=== PATIENT | female | born 1970 | race Caucasian/White ===

== ENCOUNTER 2017-03-31 17:30 | Inpatient (IN) | payer BC, MEDICAID ==
[~2017-03-31] VITALS: Ht 165.1 cm; Wt 86.2 kg
[~2017-03-31 17:30] MED LIST: BUPR-96 PO; ERGO500047 PO
--- NOTE | 2017-03-31 18:03 | NUR ---
PT IS AMBULATORY WITH STEADY GAIT. SPEAKING IN FULL SENTENCES. ACCOMPANIED BY SPOUSE AT BEDSIDE. C/O APARICIO SINCE LAST NIGHT. PAIN IS DESCRIBED PRESSURE LIKE PAIN, +PHOTO/+PHONO SENSITIVITY. +NAUSEA +VOMITING X 5 TIMES TODAY. PMHX MIGRAINE. HOWEVER PT VERBALIZED THAT "IT'S DIFFERENT THIS TIME." CAME TO SEE MD LOWERY TODAY WHO IS PT PCP AND WAS TOLD TO COME TO ED. PER PT, PT HAD AN MRI NOT SO LONG AGO AND FOUND "CYSTS" IN THE BACK OF THE NECK. WCTM PT AT THIS TIME. WAITING FOR MD TO PERFORM MSE.
--- NOTE | 2017-03-31 19:03 | NUR ---
ED HAND OFF TO MARIANELA OLIVIA
[2017-03-31] MEDS ORDERED: diphenhydrAMINE 50 MG/1 ML VIAL IV ONE (19:30)
[2017-03-31] MEDS ORDERED: IV NORMAL SALINE 1000 ML BAG IV ONE (19:30)
[2017-03-31] MEDS ORDERED: METOCLOPRAMIDE HCL 10 MG/2 ML VIAL IV ONE (19:30)
[2017-03-31 19:56] LABS: BASOPHILS # (AUTO) 0.1 K/uL (0.0-8.0); BASOPHILS % (AUTO) 0.8 % (0.0-2.0); EOSINOPHILS # (AUTO) 0.2 K/uL (0.0-0.7); EOSINOPHILS % (AUTO) 2.4 % (0.0-7.0); HEMOGLOBIN 14.6 G/DL (12.0-16.0); LYMPHOCYTES % (AUTO) 31.7 % (20.5-51.5); MEAN CORPUSCULAR HEMOGLOBIN 28.5 UUG (27.0-31.0); MEAN CORPUSCULAR HGB CONC 34 g/dL (32.0-37.0); MEAN CORPUSCULAR VOLUME 83.8 FL (81.0-99.0); MONOCYTES # (AUTO) 0.8 K/UL (0.1-1.30); MONOCYTES % (AUTO) 8.9 % (0.0-11.0); NEUTROPHILS # (AUTO) 5.2 K/UL (1.8-8.9); NEUTROPHILS % (AUTO) 56.2 % (38.5-71.5); PLATELET COUNT (AUTO) 224 K/UL (150-450); RED BLOOD CELL COUNT(AUTO) 5.14 MIL/UL (4.2-5.4); RED CELL DISTRIBUTION WIDTH 13.8 % (11.5-14.5); WHITE BLOOD COUNT (AUTO) 9.3 K/UL (4.0-11.2)
[2017-03-31 19:58] LABS: CALCIUM 8.6 mg/dL (8.5-10.1); CREATININE 0.7 mg/dL (0.6-1.3); POTASSIUM 3.6 mmol/L (3.5-5.1)
[2017-03-31] MEDS ORDERED: METOCLOPRAMIDE HCL 10 MG/2 ML VIAL ONE (20:12)
[2017-03-31] MEDS ORDERED: diphenhydrAMINE 50 MG/1 ML VIAL ONE (20:12)
[2017-03-31] MEDS ORDERED: ONDANSETRON 4 MG/2 ML VIAL IV ONE (22:15)
[2017-03-31] MEDS ORDERED: MORPHINE SULFATE 2 MG/1 ML DISP.SYRIN IV ONE (22:15)
[2017-03-31] MEDS ORDERED: ONDANSETRON 4 MG/2 ML VIAL ONE (22:25)
[2017-03-31] MEDS ORDERED: MORPHINE SULFATE 2 MG/1 ML DISP.SYRIN ONE (22:25)
[2017-03-31] MEDS ORDERED: MORPHINE SULFATE 2 MG/1 ML DISP.SYRIN IV PRN (22:45)
[2017-03-31] MEDS ORDERED: ACETAMINOPHEN 325 MG TABLET PO PRN (22:45)
[2017-03-31] MEDS ORDERED: ONDANSETRON 4 MG/2 ML VIAL IV PRN (22:45)
[2017-03-31] MEDS ORDERED: ERGOCALCIFEROL 50,000 UNIT CAPSULE PO SCH (22:45)
[2017-03-31] MEDS ORDERED: MAGNESIUM HYDROXIDE 30 ML LIQUID UDC PO PRN (22:45)
[2017-03-31] MEDS ORDERED: HYDROCODONE/APAP 5-325MG TABLET PO PRN (22:45)
--- NOTE | 2017-03-31 23:45 | NUR ---
Pt. admitted to TELE, under care of Dr. Powell Belongs List completed
[2017-04-01] VITALS (10 sets, daily range): BP systolic 102–125; BP diastolic 58–74
--- NOTE | 2017-04-01 | NUR ---
ADMITTED THIS 46Y.O. LADY,MONTENEGRIN SPEAKING BUT CAN UNDERSTAND AND SPEAK BURMESE WELL.. CHIEF COMPLAINTS OF HEADACHE,HAS HAD HISTORY OF MIGRAINES, ACCOMPANIED BY AND ER NURSE, VIA CARMEN, IN APPARENTLY FAIR CONDITION. NO C/O HEADACHE AT THIS TIME, VITAL SIGNS TAKEN AND RECORDED.NO SCUTE DISTRESS NOTED. ADMISSIONCARE RENDERED, MADE AWARE OF ADMISSION AND GAVE ORDERS TO CARRY OUT. IV SITE ON LEFT FOREARM INTACT.,KEPT WARM AND COMFORTABLE. ON TELE MONITOR,SINUS RHYTHM.HAD LUMBAR PUNCTURE IN ER BUT UNSUCCESSFUL.
--- NOTE | 2017-04-01 02:00 | NUR ---
MONITORED FOR ANY PAIN OR DISCOMFORT, SLEPT AT LONG INTERVALS.
--- NOTE | 2017-04-01 04:00 | NUR ---
VITALS TAKEN AND RECORDED, SLEPT ON AND OFF, STILL SINUS ON TELE, NO C/O HEADACHE OR ANY DISCOMFORTS.SKIN WARM AND DRY. CALL LITE W/I REACH.
--- NOTE | 2017-04-01 05:54 | NUR ---
LAB DRAWS FOR BLOODWORKS DONE AND TOLERATED WELL BY PT.,
[2017-04-01 06:43] LABS: ALBUMIN 3.1 g/dL (3.4-5.0); BILIRUBIN,TOTAL 0.6 mg/dL (0.2-1.0); CALCIUM 8.3 mg/dL (8.5-10.1); CREATININE 0.7 mg/dL (0.6-1.3); MAGNESIUM 2.2 mg/dL (1.8-2.4); TOTAL PROTEIN, SERUM 6.2 g/dL (6.4-8.2)
[2017-04-01 06:55] LABS: BASOPHILS % (AUTO) 0.7 % (0.0-2.0); EOSINOPHILS # (AUTO) 0.2 K/uL (0.0-0.7); EOSINOPHILS % (AUTO) 3.5 % (0.0-7.0); HEMATOCRIT 40.2 % (37-47); HEMOGLOBIN 13.5 G/DL (12.0-16.0); LYMPHOCYTES # (AUTO) 2.5 K/UL (0.8-4.8); LYMPHOCYTES % (AUTO) 36.5 % (20.5-51.5); MEAN CORPUSCULAR HEMOGLOBIN 28.5 UUG (27.0-31.0); MEAN CORPUSCULAR HGB CONC 34 g/dL (32.0-37.0); MEAN CORPUSCULAR VOLUME 84.6 FL (81.0-99.0); MONOCYTES # (AUTO) 0.6 K/UL (0.1-1.30); MONOCYTES % (AUTO) 9.4 % (0.0-11.0); NEUTROPHILS # (AUTO) 3.6 K/UL (1.8-8.9); NEUTROPHILS % (AUTO) 49.9 % (38.5-71.5); PLATELET COUNT (AUTO) 194 K/UL (150-450); RED BLOOD CELL COUNT(AUTO) 4.74 MIL/UL (4.2-5.4); RED CELL DISTRIBUTION WIDTH 13.6 % (11.5-14.5)
[2017-04-01] MEDS ORDERED: PANTOPRAZOLE SODIUM 40 MG TABLET.DR PO SCH (07:00)
[2017-04-01 07:08] LABS: WHITE BLOOD COUNT (AUTO) 6.9 K/UL (4.0-11.2)
[2017-04-01 07:10] LABS: THYROID STIMULATING HORMONE 3.135 mIU/mL (0.358-3.740)
--- NOTE | 2017-04-01 08:00 | NUR ---
awake alert and oriented, denies of nausea, no blurry vision, no double vision, states headache is lesser and tolerable, states doesn't require pain med, explained plan of care- verbalized understanding, safety measures maintained, call light within reach
[2017-04-01] MEDS ORDERED: buPROPion XL 150 MG TAB.SR.24H PO SCH (09:00)
--- NOTE | 2017-04-01 09:00 | NUR ---
here visiting, tele SR 70', states she's okay and comfortable, good food and fluid intake
--- NOTE | 2017-04-01 11:50 | NUR ---
having lumbar puncture in Xray dept- and in agreement- consent signed, at bedside, held lunch at this time
--- NOTE | 2017-04-01 12:10 | NUR ---
to [facility] dept per w/c
--- NOTE | 2017-04-01 13:30 | NUR ---
back from Xray dept- lumbar puncture site with dressing dry and intact, will be in supine position for 3-4 hrs and pt instructed- verbalized understanding, at bedside, lunch given
--- NOTE | 2017-04-01 13:45 | NUR ---
VSS- able to move legs well, wiggle toes freely, earm to touch, continues to be on supine position
[2017-04-01 13:57] LABS: CSF GLUCOSE 69 mg/dL (40-70); CSF PROTEIN 25 mg/dL (15-45)
--- NOTE | 2017-04-01 14:15 | NUR ---
vss, no bleeding on LP site, fgood circultion noted on both legs, able to move them well, denies of pain, no headache, at bedside
[2017-04-01 14:34] LABS: CSF APPEARANCE CLEAR (CLEAR); CSF COLOR COLORLESS (COLORLESS); CSF WHITE BLOOD CELL COUNT 1 /cumm (0-5)
[2017-04-01 14:37] LABS: CSF TUBE NUMBER 1
--- NOTE | 2017-04-01 15:30 | NUR ---
no distress noted, vss, denies of pain, good circulation noted on both lower extremities
[2017-04-01] MEDS ORDERED: CHOL10002 PO (16:09)
[2017-04-01] MEDS ORDERED: CHOLECALCIFEROL 1,000 UNIT TABLET PO SCH (16:15)
--- NOTE | 2017-04-01 17:15 | NUR ---
pt can now be up and feels fine, denies of dizziness and no headache,dinner served and te fairly
--- NOTE | 2017-04-01 17:40 | NUR ---
Pt going home per dr Powell- informed and in agreement
[2017-04-01] MEDS ORDERED: Acetaminophen PO (17:41)
[2017-04-01] MEDS ORDERED: SIMV10TA2 PO (17:41)
--- NOTE | 2017-04-01 19:00 | NUR ---
saline lock removed,no swelling/redness on site, discharge and medication instructions given- verbalized understanding, here to bring her home
--- NOTE | 2017-04-01 19:05 | NUR ---
escorted to car per w/c in stable condition under 's care, belongings width her
== END 2017-04-01 19:05 | disposition home or self-care (01) | DRG 103 ==
LOC: ER 17:34 → TELE 22:50
PROVIDERS: ADMIT Internal Medicine; ATTEND Internal Medicine
PROC: B01BYZZ Fluoroscopy of Spinal Cord using Other Contrast (ICD-10-PCS; principal; 2017-04-01)
PROC: 009U3ZX Drainage of Spinal Canal, Percutaneous Approach, Diagnostic (ICD-10-PCS; principal; 2017-04-01)
DX: G44.209 Tension-type headache, unspecified, not intractable (principal); E78.5 Hyperlipidemia, unspecified; E66.9 Obesity, unspecified; Z68.31 Body mass index [BMI] 31.0-31.9, adult
CPT/HCPCS: 36415; 62270; 70450; 83550; 83735; 84100; 84157; 84443; 85025; 85610; 85730; 87205; 89051; A4663; J1200; J2270; J2405; J2765; J7030

== ENCOUNTER 2017-04-04 13:26 | Inpatient (IN) | payer BC, MEDICAID ==
[~2017-04-04] VITALS: Ht 165.1 cm; Wt 90.3 kg
[~2017-04-04 13:26] MED LIST changes: +Acetaminophen PO; +CHOL10002 PO; -ERGO500047 PO; +SIMV10TA2 PO
[2017-04-04] MEDS ORDERED: METOCLOPRAMIDE HCL 10 MG/2 ML VIAL IV ONE (14:45)
[2017-04-04] MEDS ORDERED: IV NORMAL SALINE 1000 ML BAG IV ONE (14:45)
[2017-04-04] MEDS ORDERED: METOCLOPRAMIDE HCL 10 MG/2 ML VIAL ONE (15:05)
[2017-04-04] MEDS ORDERED: IV NORMAL SALINE 250 ML IV ONE (15:09)
[2017-04-04] MEDS ORDERED: IOHEXOL 350 100 ML INFUS..BTL ONE (15:09)
[2017-04-04 15:11] LABS: BASOPHILS % (AUTO) 0.1 % (0.0-2.0); EOSINOPHILS # (AUTO) 0.1 K/uL (0.0-0.7); EOSINOPHILS % (AUTO) 0.5 % (0.0-7.0); HEMATOCRIT 44.6 % (37-47); HEMOGLOBIN 15.1 G/DL (12.0-16.0); LYMPHOCYTES # (AUTO) 1.4 K/UL (0.8-4.8); LYMPHOCYTES % (AUTO) 11.6 % (20.5-51.5); MEAN CORPUSCULAR HEMOGLOBIN 28.5 UUG (27.0-31.0); MEAN CORPUSCULAR HGB CONC 34 g/dL (32.0-37.0); MEAN CORPUSCULAR VOLUME 83.9 FL (81.0-99.0); MONOCYTES # (AUTO) 0.4 K/UL (0.1-1.30); MONOCYTES % (AUTO) 3.4 % (0.0-11.0); NEUTROPHILS # (AUTO) 10.6 K/UL (1.8-8.9); NEUTROPHILS % (AUTO) 84.4 % (38.5-71.5); PLATELET COUNT (AUTO) 222 K/UL (150-450); RED BLOOD CELL COUNT(AUTO) 5.31 MIL/UL (4.2-5.4); RED CELL DISTRIBUTION WIDTH 13.5 % (11.5-14.5); WHITE BLOOD COUNT (AUTO) 12.5 K/UL (4.0-11.2)
[2017-04-04 15:15] LABS: CREATININE 0.8 mg/dL (0.6-1.3); POTASSIUM 4.4 mmol/L (3.5-5.1)
[2017-04-04] MEDS ORDERED: ONDANSETRON IV *ER 4 MG/2 ML VIAL IV ONE (15:45)
[2017-04-04] MEDS ORDERED: HYDROMORPHONE 1 MG/1 ML DISP.SYRIN IV ONE (15:45)
[2017-04-04] MEDS ORDERED: HYDROMORPHONE 1 MG/1 ML DISP.SYRIN ONE (15:57)
[2017-04-04] MEDS ORDERED: ONDANSETRON 4 MG/2 ML VIAL ONE (15:57)
[2017-04-04] MEDS ORDERED: DEXAMETHASONE SOD PHOSPHATE 4 MG INJ IV ONE (16:15)
[2017-04-04] MEDS ORDERED: DEXAMETHASONE SOD PHOSPHATE 10 MG INJ ONE (16:29)
[2017-04-04] MEDS ORDERED: MORPHINE SULFATE 2 MG/1 ML DISP.SYRIN IV ONE (18:45)
[2017-04-04] MEDS ORDERED: KETOROLAC TROMETHAMINE 15 MG INJ IVP ONE (18:45)
--- NOTE | 2017-04-04 18:55 | NUR ---
pt transfered to floor in stable condition
[2017-04-04] MEDS ORDERED: MORPHINE SULFATE 2 MG/1 ML DISP.SYRIN ONE (18:59)
[2017-04-04] MEDS ORDERED: MORPHINE SULFATE 4 MG/1 ML DISP.SYRIN ONE (18:59)
[2017-04-04] MEDS ORDERED: KETOROLAC TROMETHAMINE 15 MG INJ ONE (19:00)
--- NOTE | 2017-04-04 19:00 | NUR ---
Received report from ANGELIA nurse.
[2017-04-04] MEDS ORDERED: ACETAMINOPHEN 325 MG TABLET PO PRN (19:15)
[2017-04-04] MEDS ORDERED: ONDANSETRON 4 MG/2 ML VIAL IV PRN (19:15)
[2017-04-04] MEDS ORDERED: ZOLPIDEM 5 MG TABLET PO PRN (19:15)
[2017-04-04] MEDS ORDERED: Z GUARD REMEDY PASTE 57 GM TUBE TOP PRN (19:15)
[2017-04-04] MEDS ORDERED: MAGNESIUM HYDROXIDE 30 ML LIQUID UDC PO PRN (19:15)
--- NOTE | 2017-04-04 19:40 | NUR ---
Admitted a 46 year old female patient who presented c/o headache and nausea and vomiting. AAOx4, able to make needs known. Denies Headache and N/V at this time. Routine admission care done. Placed on a cardiac monitoring status as ordered. Plan of care initiated.
[2017-04-04 20:00] VITALS: BP 120/65
[2017-04-04] MEDS: SIMVASTATIN 10 MG TABLET PO SCH (22:04)
--- NOTE | 2017-04-05 | NUR ---
Sleeping comfortably on rounds. No s/s of pain/discomforts at this time. Continue to monitor.
--- NOTE | 2017-04-05 05:08 | NUR ---
Slept well. No complaint presented all night. Safety measures and fall precaution maintained. All needs attended and met. No significant event reported all night. Continue care as planned.
[2017-04-05 05:21] VITALS: BP 121/67
[2017-04-05 06:30] LABS: BASOPHILS # (AUTO) 0.1 K/uL (0.0-8.0); BASOPHILS % (AUTO) 0.4 % (0.0-2.0); EOSINOPHILS % (AUTO) 0.1 % (0.0-7.0); HEMATOCRIT 40.3 % (37-47); HEMOGLOBIN 14.3 G/DL (12.0-16.0); LYMPHOCYTES # (AUTO) 1.3 K/UL (0.8-4.8); LYMPHOCYTES % (AUTO) 7.4 % (20.5-51.5); MEAN CORPUSCULAR HEMOGLOBIN 29.7 UUG (27.0-31.0); MEAN CORPUSCULAR HGB CONC 36 g/dL (32.0-37.0); MEAN CORPUSCULAR VOLUME 83.8 FL (81.0-99.0); MONOCYTES # (AUTO) 0.3 K/UL (0.1-1.30); MONOCYTES % (AUTO) 1.5 % (0.0-11.0); NEUTROPHILS # (AUTO) 16.2 K/UL (1.8-8.9); NEUTROPHILS % (AUTO) 90.6 % (38.5-71.5); PLATELET COUNT (AUTO) 228 K/UL (150-450); RED CELL DISTRIBUTION WIDTH 13.5 % (11.5-14.5)
[2017-04-05 06:43] LABS: CALCIUM 8.8 mg/dL (8.5-10.1); CREATININE 0.8 mg/dL (0.6-1.3); MAGNESIUM 1.7 mg/dL (1.8-2.4); PHOSPHOROUS 2.7 mg/dL (2.5-4.9); POTASSIUM 4.1 mmol/L (3.5-5.1)
--- NOTE | 2017-04-05 06:53 | NUR ---
Report given to ALYCIA Mccauley
--- NOTE | 2017-04-05 07:10 | NUR ---
REPORT RECEIVED FROM EQUIPMENT SERVICES ASSOCIATE, PATIENT REPORTS NO PAIN, AND IS AMBULATING AND PERFORMING SELF HYGIENE
[2017-04-05 07:53] LABS: BAND % (MANUAL) 6 % (0-10); LYMPHOCYTES % (MANUAL) 8 % (20-40); MONOCYTES % (MANUAL) 1 % (2-10); NEUTROPHILS % (MANUAL) 85 % (42-75)
[2017-04-05 07:55] LABS: PLATELET ESTIMATE ADEQUATE; TOXIC GRANULATION 1+
[2017-04-05] MEDS: buPROPion XL 150 MG TAB.SR.24H PO SCH (08:19)
[2017-04-05] MEDS: CHOLECALCIFEROL 1,000 UNIT TABLET PO SCH (08:19)
[2017-04-05 11:44] VITALS: BP 120/77
--- NOTE | 2017-04-05 13:00 | NUR ---
PATIENT SEEN BY NEURO CONSULT, PLACED ON NPO AFTER MIDNIGHT FOR PROCEDURE TOMORROW
[2017-04-05] MEDS: MAGNESIUM SULFATE/D5W 100 ML IV SCH ×2 (13:03→13:19)
[2017-04-05 15:50] VITALS: BP 110/66
--- NOTE | 2017-04-05 18:06 | NUR ---
PATIENT EXPERIENCED OCCASIONAL PAIN IN THE DAY WHICH WAS RELIEVED WITH TYLENOL AND LAYING FLAT. CONSENT WAITING TO BE SIGNED PATIENT HAS MORE QUESTIONS FOR THE SURGEON. MAGNESIUM LEVELS WERE LOW, INFUSION ORDERED FOR ONE TIME DOSE.
[2017-04-05 18:54] LABS: *URINE HCG, QUAL NEGATIVE (NEGATIVE)
--- NOTE | 2017-04-05 19:00 | NUR ---
Received report from ALYCIA Ruffin
--- NOTE | 2017-04-05 19:30 | NUR ---
Awake, on bed, surrounded by family member at the bedside. Denies any pain/discomforts at this time. HOB slightly elevated. Safety measures maintained.
[2017-04-05 20:00] VITALS: BP 121/77
[2017-04-05] MEDS: SIMVASTATIN 10 MG TABLET PO SCH (21:01)
--- NOTE | 2017-04-05 22:10 | NUR ---
ASSOCIATE BUSINESS ANALYST reported that patient was sobbing, talked to patient and claimed that she is praying.
--- NOTE | 2017-04-06 | NUR ---
NPO order initiated. Patient made aware.
--- NOTE | 2017-04-06 05:53 | NUR ---
Slept well. No complaint presented throughout the shift. Kept NPO as ordered. All needs attended and met. Continue care as planned.
[2017-04-06 06:18] VITALS: BP 101/62
[2017-04-06] MEDS ORDERED: IOHEXOL-240 MG , 50 ML VIAL IV ONE (06:39)
--- NOTE | 2017-04-06 06:47 | NUR ---
To surgery via bed.
[2017-04-06 07:31] LABS: CALCIUM 8.4 mg/dL (8.5-10.1); CREATININE 0.9 mg/dL (0.6-1.3); MAGNESIUM 2.2 mg/dL (1.8-2.4); POTASSIUM 4.2 mmol/L (3.5-5.1)
[2017-04-06] MEDS ORDERED: FENTANYL CITRATE 100 MCG/2 ML AMPUL ONE (08:16)
--- NOTE | 2017-04-06 09:00 | NUR ---
PATIENT BACK IN THE ROOM FROM THE OR. NO S/S OF DISTRESS NOTED. C/O OF PAIN THE BACK WHERE THE LUMBAR PUNCTURE WAS DONE. MEDICATED FROM THE OR. AT THE BEDSIDE. NEURO CHECK q4HRS, AND KEEP PATIENT FLAT FOR 24 HRS. PATIENT ATE BREAKFAST, WELL TOLERATED. WILL CONTINUE MONITORING.
[2017-04-06] MEDS: CHOLECALCIFEROL 1,000 UNIT TABLET PO SCH (09:23)
[2017-04-06] MEDS: buPROPion XL 150 MG TAB.SR.24H PO SCH (09:23)
[2017-04-06 11:36] VITALS: BP 102/67
[2017-04-06] MEDS: HYDROCODONE/APAP 5-325MG TABLET PO PRN ×2 (15:41→23:26)
[2017-04-06 16:00] VITALS: BP 107/68
[2017-04-06 19:00] VITALS: BP 109/62
--- NOTE | 2017-04-06 19:00 | NUR ---
Received report from ALYCIA Stephenson
--- NOTE | 2017-04-06 19:02 | NUR ---
PATIENT IN BED FLAT. NO S/S OF DISTRESS NOTED. C/O OF PAIN DURING THE PAIN. MEDICATED ORDERED. NEURO CHECK WAS DONE Q4HRS. NO CHANGES IN STATUS. PATIENT IS IN STABLE CONDITIONS. IV WAS LEAKING. DR. MENA SAID NO NEED FOR ANOTHER IV, POSSIBLE DC TOMORROW. SAFETY AND COMFORT PROVIDED BY STAFF. WILL CONTINUE MONITORING.
--- NOTE | 2017-04-06 19:40 | NUR ---
Awake, denies pain at this time but complaining of discomforts for lying flat all the time. Refused pain meds offer at this time. at bedside. Neuro check done. Will continue to monitor.
[2017-04-06] MEDS: SIMVASTATIN 10 MG TABLET PO SCH (21:27)
--- NOTE | 2017-04-06 23:26 | NUR ---
Complaining of body ache, medicated for pain as needed. Will monitor.
[2017-04-07 04:00] VITALS: BP 107/69
--- NOTE | 2017-04-07 05:51 | NUR ---
VSS. Medicated once for headache. No further complaint presented .Slept well. Safety measures and fall precaution maintained. No significant event reported all night. All needs attended and met. Continue current plan of care.
--- NOTE | 2017-04-07 07:00 | NUR ---
PATIENT RECEIVED IN BED RESTING. NO S/S OF DISTRESS. C/O OF LOWER BACK PAIN DUE TO LUMBAR PUNCTURE. PATIENT WILL BE MEDICATED FOR COMFORT ORDERED. SAFETY AND COMFORT PROVIDED. WILL CONTINUE MONITORING.
[2017-04-07] MEDS ORDERED: PROPOFOL 200 MG/20 ML BOTTLE IV ONE (07:10)
[2017-04-07] MEDS ORDERED: IV LACTATED RINGERS SOLUTION 1,000 ML BAG MC ONE (07:10)
[2017-04-07] MEDS ORDERED: CEFAZOLIN 1 G VIAL MC ONE (07:10)
[2017-04-07 07:12] LABS: CALCIUM 8.6 mg/dL (8.5-10.1); CREATININE 0.8 mg/dL (0.6-1.3); POTASSIUM 4.4 mmol/L (3.5-5.1)
[2017-04-07] MEDS: HYDROCODONE/APAP 5-325MG TABLET PO PRN (07:33)
[2017-04-07 07:40] LABS: BASOPHILS # (AUTO) 0.1 K/uL (0.0-8.0); BASOPHILS % (AUTO) 0.9 % (0.0-2.0); EOSINOPHILS # (AUTO) 0.2 K/uL (0.0-0.7); EOSINOPHILS % (AUTO) 2.8 % (0.0-7.0); HEMATOCRIT 44.3 % (37-47); HEMOGLOBIN 14.8 G/DL (12.0-16.0); LYMPHOCYTES # (AUTO) 3.5 K/UL (0.8-4.8); MEAN CORPUSCULAR HEMOGLOBIN 28.1 UUG (27.0-31.0); MEAN CORPUSCULAR HGB CONC 33 g/dL (32.0-37.0); MEAN CORPUSCULAR VOLUME 84.1 FL (81.0-99.0); MONOCYTES # (AUTO) 0.6 K/UL (0.1-1.30); MONOCYTES % (AUTO) 7.8 % (0.0-11.0); NEUTROPHILS # (AUTO) 3.9 K/UL (1.8-8.9); NEUTROPHILS % (AUTO) 46.5 % (38.5-71.5); PLATELET COUNT (AUTO) 207 K/UL (150-450); RED BLOOD CELL COUNT(AUTO) 5.26 MIL/UL (4.2-5.4)
[2017-04-07 07:49] LABS: WHITE BLOOD COUNT (AUTO) 8.3 K/UL (4.0-11.2)
[2017-04-07] MEDS: CHOLECALCIFEROL 1,000 UNIT TABLET PO SCH (08:19)
[2017-04-07] MEDS: buPROPion XL 150 MG TAB.SR.24H PO SCH (08:19)
[2017-04-07 11:45] VITALS: BP 108/70
[2017-04-07] MEDS ORDERED: LIDOCAINE-MPF 2% 5 ML VIAL MC ONE (12:09)
--- NOTE | 2017-04-07 12:25 | NUR ---
PATIENT BEEN DISCHARGE FROM DR. MENA. NO S/S OF DISTRESS NOTED. DENIED PAIN DURING DISCHARGE. DC INSTRUCTIONS WERE DISCUSSED WITH PATIENT AND . ID BAND WAS REMOVED. PATIENT WAS TAKEN BY WHEELCHAIR TO PRIVATE CAR. SAFETY AND COMFORT PROVIDED DURING HER STAY.
== END 2017-04-07 12:10 | disposition home or self-care (01) | DRG 103 ==
LOC: ER 13:26 → TELE 18:38 → MED 04-05 13:55
PROVIDERS: ADMIT Family Medicine; ATTEND Family Medicine
PROC: 3E0R3GC Introduction of Other Therapeutic Substance into Spinal Canal, Percutaneous Approach (ICD-10-PCS; principal; 2017-04-06 07:10)
DX: G97.1 Other reaction to spinal and lumbar puncture (principal); Z79.899 Other long term (current) drug therapy; E55.9 Vitamin D deficiency, unspecified; E78.5 Hyperlipidemia, unspecified; Y81.3 Surgical instruments, materials and general- and plastic-surgery devices (including sutures) associated with adverse incidents; Y84.4 Aspiration of fluid as the cause of abnormal reaction of the patient, or of later complication, without mention of misadventure at the time of the procedure; Y92.009 Unspecified place in unspecified non-institutional (private) residence as the place of occurrence of the external cause
CPT/HCPCS: 36415; 70030-TC; 70496; 72100; 76000; 83735; 84100; 84703; 85025; 85651; 85730; A4663; J0690; J1100; J1170; J1885; J2270; J2405; J2765; J3010; J3475; J3490; J7030; J7050; J7120; Q9966; Q9967

== ENCOUNTER 2018-11-21 18:39 | Emergency (ER) | payer BC, OTHER ==
[~2018-11-21] VITALS: Ht 167.6 cm; Wt 86.2 kg
--- NOTE | 2018-11-21 19:05 | NUR ---
PT IS IN ROOM #2B WAITING FOR DR LAKE EVALUATION.
--- NOTE | 2018-11-21 19:15 | NUR ---
RECIVED SHIFT REPORT FROM ALYCIA GAN.
--- NOTE | 2018-11-21 19:16 | NUR ---
GINETTE BANKS AT BEDSIDE FOR MSE.
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
[2018-11-21] MEDS ORDERED: IBUPROFEN 800 MG TABLET ONE ×2 (19:29→19:31)
[2018-11-21] MEDS ORDERED: IBUPROFEN 800 MG TABLET PO ONE (19:30)
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
[2018-11-21 21:37] LABS: *URINE HCG, QUAL NEGATIVE (NEGATIVE)
--- NOTE | 2018-11-21 21:50 | NUR ---
PT TAKEN TO RADIOLOGY FOR CT SCAN.
--- NOTE | 2018-11-21 22:11 | NUR ---
PT BACK IN IN ER FROM RADIOLOGY.
--- NOTE | 2018-11-21 22:24 | NUR ---
Patient discharged to home in stable conditon. Written and verbal after care instructions given. Patient verbalizes understanding of instructions. PT D/C W/ PRESCRIPTION. ALL BELONGINGS W/ PT. PT SELF-AMBULATED W/O DIFFICULTY.
[2018-11-21 22:25] VITALS: BP 118/76
== END 2018-11-21 22:26 | disposition home or self-care (01) ==
LOC: ER 18:41
DX: S13.4XXA Sprain of ligaments of cervical spine, initial encounter (principal); S39.012A Strain of muscle, fascia and tendon of lower back, initial encounter; Z79.899 Other long term (current) drug therapy; V49.49XA Driver injured in collision with other motor vehicles in traffic accident, initial encounter; Y93.89 Activity, other specified; Y92.410 Unspecified street and highway as the place of occurrence of the external cause; Y99.8 Other external cause status
CPT/HCPCS: 72125; 72131; 84703; A4663

== ENCOUNTER 2020-04-09 21:40 | Emergency (ER) | payer BC, OTHER ==
[~2020-04-09] VITALS: Ht 165.1 cm; Wt 89.4 kg
--- NOTE | 2020-04-09 22:15 | NUR ---
Dr. Alexandra at bedside for MSE
--- NOTE | 2020-04-09 22:20 | NUR ---
Hard C-Collar applied per MD orders.
[2020-04-09] MEDS ORDERED: HYDROCODONE/APAP 5-325MG TABLET ONE (22:25)
--- NOTE | 2020-04-09 22:26 | NUR ---
Patient taken to CT scan in stable condition
[2020-04-09] MEDS ORDERED: HYDROCODONE/APAP 5-325MG TABLET PO ONE (22:30)
--- NOTE | 2020-04-09 22:41 | NUR ---
Patient back from CT scan in stable condition
[2020-04-09] MEDS ORDERED: KETOROLAC TROMETHAMINE 30 MG INJ IM ONE (22:45)
[2020-04-09] MEDS ORDERED: KETOROLAC TROMETHAMINE 30 MG INJ ONE (22:50)
--- NOTE | 2020-04-09 23:18 | NUR ---
Patient discharged to home in stable condition. Written and verbal after care instructions given. Patient verbalizes understanding of instructions. Stressed follow up or return to ER for worsening s/s. patient ambulating with steady gait. C-Collar removed. Patient tolerated well. NAD noted
[2020-04-09 23:28] VITALS: BP 122/83
== END 2020-04-09 23:18 | disposition home or self-care (01) ==
LOC: ER 21:40
DX: S13.9XXA Sprain of joints and ligaments of unspecified parts of neck, initial encounter (principal); S73.101A Unspecified sprain of right hip, initial encounter; V49.50XA Passenger injured in collision with unspecified motor vehicles in traffic accident, initial encounter; Y92.410 Unspecified street and highway as the place of occurrence of the external cause
CPT/HCPCS: 72040; 96372; 99283; J1885; A4663

== ENCOUNTER 2021-06-04 21:03 | Emergency (ER) | payer BC, OTHER ==
[~2021-06-04] VITALS: Ht 165.1 cm; Wt 81.6 kg
[2021-06-04] MEDS ORDERED: LIDOCAINE VISCUS 2% 15 ML UDC MM ONE (22:00)
[2021-06-04 22:04] LABS: HEMATOCRIT 42.5 % (31.2-41.9); MEAN CORPUSCULAR HEMOGLOBIN 28.2 uug (24.7-32.8); MEAN CORPUSCULAR VOLUME 85.4 fL (75.5-95.3); PLATELET COUNT (AUTO) 215 K/uL (179-408)
[2021-06-04 22:06] LABS: CREATININE 0.8 mg/dL (0.6-1.3); POTASSIUM 3.6 mmol/L (3.5-5.1)
[2021-06-04 22:12] LABS: BILIRUBIN,DIRECT 0.1 mg/dL (0.0-0.2); BILIRUBIN,TOTAL 0.3 mg/dL (0.2-1.0); TOTAL PROTEIN, SERUM 6.8 g/dL (6.4-8.2)
[2021-06-04] MEDS ORDERED: LIDOCAINE VISCUS 2% 15 ML UDC ONE (23:01)
[2021-06-04] MEDS ORDERED: TINI500T10 PO (23:28)
[2021-06-04] MEDS ORDERED: AMOX500T2 PO (23:28)
[2021-06-04] MEDS ORDERED: OXYC-128 PO (23:28)
[2021-06-04] MEDS ORDERED: CLAR-45 PO (23:28)
--- NOTE | 2021-06-04 23:43 | NUR ---
Patient discharged to home in stable condition. Written and verbal after care instructions given. Patient verbalizes understanding of instructions. Stressed follow up or return to ER for worsening s/s. Patient out of ER with steady gait, no acute signs of distress, all belongings taken, IV site discontinued.
[2021-06-04 23:47] VITALS: BP 123/68
== END 2021-06-04 23:49 | disposition home or self-care (01) ==
LOC: ER 21:03
DX: K29.70 Gastritis, unspecified, without bleeding (principal); E83.51 Hypocalcemia
CPT/HCPCS: 36415; 83690; 85025; 93005; A4663

== ENCOUNTER 2022-05-21 19:54 | Emergency (ER) | payer BC, OTHER ==
[~2022-05-21] VITALS: Ht 172.7 cm; Wt 86.2 kg
[~2022-05-21 19:54] MED LIST changes: +AMOX500T2 PO; -Acetaminophen PO; -BUPR-96 PO; -CHOL10002 PO; +CLAR-45 PO; +OXYC-128 PO; -SIMV10TA2 PO; +TINI500T18 PO
[2022-05-21] MEDS ORDERED: HYDROMORPHONE 1 MG/1 ML DISP.SYRIN IV ONE (22:30)
[2022-05-21] MEDS ORDERED: ONDANSETRON 4 MG/2 ML VIAL IV ONE (22:30)
[2022-05-21] MEDS ORDERED: IV NORMAL SALINE 1000 ML BAG IV ONE (22:30)
[2022-05-21 22:41] LABS: HEMATOCRIT 41.6 % (31.2-41.9); MEAN CORPUSCULAR HEMOGLOBIN 28.6 uug (24.7-32.8); MEAN CORPUSCULAR VOLUME 83.5 fL (75.5-95.3); PLATELET COUNT (AUTO) 190 K/uL (179-408)
[2022-05-21] MEDS ORDERED: ONDANSETRON 4 MG/2 ML VIAL ONE (22:49)
[2022-05-21] MEDS ORDERED: HYDROMORPHONE 1 MG/1 ML DISP.SYRIN ONE (22:50)
[2022-05-21 22:52] LABS: CREATININE 0.9 mg/dL (0.6-1.3); POTASSIUM 3.8 mmol/L (3.5-5.1)
[2022-05-21 22:57] LABS: BILIRUBIN,DIRECT 0.2 mg/dL (0.0-0.2); BILIRUBIN,TOTAL 0.7 mg/dL (0.2-1.0); TOTAL PROTEIN, SERUM 7.2 g/dL (6.4-8.2)
[2022-05-21] MEDS ORDERED: SWABABLE VALVE TRANSFER SET EA MC ONE (23:15)
[2022-05-21] MEDS ORDERED: IOHEXOL 300MG/ML 100 ML INFUS..BTL ONE (23:15)
[2022-05-21] MEDS ORDERED: IV NORMAL SALINE 250 ML IV ONE (23:15)
[2022-05-22] MEDS ORDERED: ONDA4TAB5 PO (02:11)
[2022-05-22] MEDS ORDERED: AMOX-430 PO (02:11)
[2022-05-22] MEDS ORDERED: HYDR-4209 PO (02:11)
[2022-05-22] MEDS ORDERED: PIPERACILLIN SODIUM/TAZOBACTAM 3.375 G in IV DEXTROSE 5% 50 ML IV ONE (02:15)
[2022-05-22] MEDS ORDERED: PIPERACILLIN/TAZOBACTAM/D5W 50 ML IV ONE (02:55)
[2022-05-22] MEDS ORDERED: ACETAMINOPHEN ES 500 MG TABLET ONE (03:14)
[2022-05-22] MEDS ORDERED: HYDROMORPHONE 1 MG/1 ML DISP.SYRIN ONE (03:14)
[2022-05-22] MEDS ORDERED: ACETAMINOPHEN ES 500 MG TABLET PO ONE (03:15)
[2022-05-22] MEDS ORDERED: HYDROMORPHONE 1 MG/1 ML DISP.SYRIN IV ONE (03:15)
--- NOTE | 2022-05-22 03:38 | NUR ---
Patient discharged to home in stable condition. Written and verbal after care instructions given. Patient verbalizes understanding of instructions. Stressed follow up or return to ER for worsening s/s. pt ambulated with steady gait. denies pian. no SOB. no chest pain. AOx4
[2022-05-22 03:39] VITALS: BP 141/86
== END 2022-05-22 03:40 | disposition home or self-care (01) ==
LOC: ER 19:56
DX: K57.32 Diverticulitis of large intestine without perforation or abscess without bleeding (principal); R03.0 Elevated blood-pressure reading, without diagnosis of hypertension; Z20.822 Contact with and (suspected) exposure to COVID-19
CPT/HCPCS: 36415; 74177; 80048; 80076; 83690; 85025; 85730; 87426; 96361; 96365; 96375 ×2; 99285; J1170 ×2; J2405; J2543; J7040; Q9967; A4663; A9150

== ENCOUNTER 2022-09-29 22:17 | Inpatient (IN) | payer BC ==
[~2022-09-29] VITALS: Ht 165.1 cm; Wt 86.2 kg
[~2022-09-29 22:17] MED LIST changes: +AMOX-430 PO; +HYDR-4209 PO; +ONDA4TAB5 PO
[2022-09-29] MEDS ORDERED: HYDROMORPHONE 1 MG/1 ML DISP.SYRIN IV ONE (23:00)
[2022-09-29] MEDS ORDERED: ONDANSETRON 4 MG/2 ML VIAL IV ONE (23:00)
[2022-09-29] MEDS ORDERED: IV NORMAL SALINE 1000 ML BAG IV ONE (23:00)
[2022-09-29] MEDS ORDERED: HYDROMORPHONE 1 MG/1 ML DISP.SYRIN ONE (23:12)
[2022-09-29] MEDS ORDERED: ONDANSETRON 4 MG/2 ML VIAL ONE (23:12)
[2022-09-29 23:39] LABS: HEMATOCRIT 44.7 % (31.2-41.9); MEAN CORPUSCULAR HEMOGLOBIN 28.9 uug (24.7-32.8); MEAN CORPUSCULAR VOLUME 84.2 fL (75.5-95.3); PLATELET COUNT (AUTO) 235 K/uL (179-408)
[2022-09-29 23:40] LABS: *BILIRUBIN,URIN NEGATIVE (NEGATIVE); *CLARITY,URINE CLEAR (CLEAR); *COLOR,URINE YELLOW (YELLOW); *KETONES,URINE NEGATIVE (NEGATIVE); *UROBILINOGEN,URINE 0.2 E.U./dl (NORMAL); LEUKOCYTE ESTERASE ,URINE TRACE (NEGATIVE); NITRITE, URINE NEGATIVE (NEGATIVE); PH,URINE 6.5 (5.0-8.0); UGLUCOSE NEGATIVE (NEGATIVE)
[2022-09-29 23:43] LABS: *BLOOD, URINE TRACE (NEGATIVE); BACTERIA,URINE NONE SEEN /HPF (NONE SEEN); RBC,URINE 0-3 /HPF (0-3); SQUAMOUS EPITHELIAL CELL,UR FEW /HPF (NONE SEEN)
[2022-09-29 23:44] LABS: POTASSIUM 3.7 mmol/L (3.5-5.1)
[2022-09-29 23:50] LABS: BILIRUBIN,DIRECT 0.1 mg/dL (0.0-0.2); BILIRUBIN,TOTAL 0.5 mg/dL (0.2-1.0)
[2022-09-30] MEDS ORDERED: IV NORMAL SALINE 250 ML IV ONE (00:02)
[2022-09-30] MEDS ORDERED: IOHEXOL 300MG/ML 100 ML INFUS..BTL ONE (00:02)
[2022-09-30] MEDS ORDERED: SWABABLE VALVE TRANSFER SET EA MC ONE (00:02)
--- NOTE | 2022-09-30 00:12 | NUR ---
PATIENT OUT OF UNIT FOR CT SCAN VIA GURNY.
[2022-09-30] MEDS ORDERED: PIPERACILLIN SODIUM/TAZOBACTAM 4.5 G in IV DEXTROSE 5% 50 ML IV SCH (00:15)
--- NOTE | 2022-09-30 00:27 | NUR ---
PATIENT BACK FROM CT WITH NO DISTRESS NOTED.
[2022-09-30] MEDS ORDERED: PIPERACILLIN/TAZO 4.5 GM VIAL IV ONE (01:10)
--- NOTE | 2022-09-30 01:14 | NUR ---
Called [facility] for panel call. MIRANDA Morales loss prevention detective.
[2022-09-30] MEDS ORDERED: MORPHINE SULFATE 2 MG/1 ML DISP.SYRIN IV PRN ×2 (01:30→09:42)
[2022-09-30] MEDS ORDERED: ONDANSETRON 4 MG/2 ML VIAL IV PRN (01:30)
[2022-09-30] MEDS ORDERED: MAGNESIUM HYDROXIDE 30 ML LIQUID UDC PO PRN (01:30)
[2022-09-30] MEDS ORDERED: REMEDY ESSENTIAL ZINC PASTE 113 GM TP PRN (01:30)
[2022-09-30] MEDS ORDERED: PIPERACILLIN/TAZOBACTAM/D5W 50 ML IV ONE (02:46)
--- NOTE | 2022-09-30 02:55 | NUR ---
Transfered to 3rd floor med surg via gurny with no distress noted.
[2022-09-30 03:00] VITALS: BP 115/69
--- NOTE | 2022-09-30 03:00 | NUR ---
Admitted a 51 years old female with Dx of Diverticulitis and Sepsis. Patient AAOX4. In no acute distress. Denies any SOB. Complain of abdominal pain 5/10 and tolerable at this time. Per patient she can tolerated pain up to 7/10 scale. IV site on left AC intact and patent. Routine admission care done. Plan of care initiated. Safety measure initiated and call light within reached.
[2022-09-30] MEDS: IV 1/2NS 1000 ML 1,000 ML IV PRN (03:25)
[2022-09-30] MEDS: ENOXAPARIN SODIUM 40 MG/0.4 ML DISP.SYRIN SQ SCH ×2 (03:28→21:20)
[2022-09-30 04:00] VITALS: BP 120/66
--- NOTE | 2022-09-30 05:31 | NUR ---
Patient sleeping at this time. No complain of abdominal pain. IVF infusing. Safety measure maintained and call light within reached.
[2022-09-30] MEDS ORDERED: PIPERACILLIN SODIUM/TAZOBACTAM 3.375 G in IV DEXTROSE 5% 50 ML IV SCH (06:00)
[2022-09-30 07:28] LABS: HEMATOCRIT 38.6 % (31.2-41.9); MEAN CORPUSCULAR HEMOGLOBIN 29.3 uug (24.7-32.8); MEAN CORPUSCULAR VOLUME 83.6 fL (75.5-95.3); PLATELET COUNT (AUTO) 201 K/uL (179-408)
[2022-09-30 07:43] LABS: CREATININE 0.9 mg/dL (0.6-1.3); MAGNESIUM 1.9 mg/dL (1.8-2.4); POTASSIUM 3.7 mmol/L (3.5-5.1)
[2022-09-30] MEDS: PIPERACILLIN SODIUM/TAZOBACTAM 3.375 G in IV DEXTROSE 5% 100 ML IV SCH ×3 (08:01→18:36)
[2022-09-30 11:19] VITALS: BP 97/56
[2022-09-30] MEDS: ACETAMINOPHEN 325 MG TABLET PO PRN ×2 (12:27→19:27)
[2022-09-30 15:05] VITALS: BP 117/62
--- NOTE | 2022-09-30 15:45 | NUR ---
patient is taken to the surgery Addendum: 09/30/22 at 1917 by REBECCA DWYER RN, RN disregard above documentation, wrong documentation
--- NOTE | 2022-09-30 17:22 | NUR ---
Patient is still in surgery Addendum: 09/30/22 at 1917 by REBECCA DWYER RN, RN wrong documentation
[2022-09-30 20:00] VITALS: BP 103/58
[2022-10-01] MEDS: PIPERACILLIN SODIUM/TAZOBACTAM 3.375 G in IV DEXTROSE 5% 100 ML IV SCH ×2 (02:07→08:21)
[2022-10-01 04:00] VITALS: BP 99/57
[2022-10-01] MEDS: IV 1/2NS 1000 ML 1,000 ML IV PRN (05:21)
--- NOTE | 2022-10-01 06:37 | NUR ---
Stable No c/o pain voiced.
[2022-10-01 07:22] LABS: MEAN CORPUSCULAR HEMOGLOBIN 29.3 uug (24.7-32.8); MEAN CORPUSCULAR VOLUME 84.1 fL (75.5-95.3); PLATELET COUNT (AUTO) 197 K/uL (179-408)
[2022-10-01 07:44] LABS: CREATININE 0.9 mg/dL (0.6-1.3); PHOSPHOROUS 3.4 mg/dL (2.5-4.9); POTASSIUM 3.8 mmol/L (3.5-5.1)
[2022-10-01 11:18] VITALS: BP 111/69
[2022-10-01] MEDS ORDERED: BISA-79 PO (12:28)
[2022-10-01] MEDS ORDERED: AMOX-430 PO (12:28)
[2022-10-01] MEDS ORDERED: ACET325T53 PO (12:28)
[2022-10-01] MEDS ORDERED: BISACODYL 5 MG TABLET.DR PO ONE (13:00)
--- NOTE | 2022-10-01 14:30 | NUR ---
Patient alert, oriented x4, no sob, respirations are even nonlabored, skin warm and dry to touch, no acute distress noted, discharge teaching provided, patient and her verbalized understanding of it. belongings are accounted and signed, sent with patient, IV removed, ID removed. patient picked up by her .
[2022-10-02] MEDS ORDERED: PANTOPRAZOLE SODIUM 40 MG TABLET.DR PO ONE (07:16)
== END 2022-10-01 14:30 | disposition home or self-care (01) | DRG 392 ==
LOC: ER 22:17 → MEDSURG3 09-30 01:20
PROVIDERS: ADMIT Nurse Practitioner Acute Care; ATTEND Nurse Practitioner Acute Care
DX: K57.32 Diverticulitis of large intestine without perforation or abscess without bleeding (principal); E66.9 Obesity, unspecified; M19.90 Unspecified osteoarthritis, unspecified site; Z68.31 Body mass index [BMI] 31.0-31.9, adult; D72.829 Elevated white blood cell count, unspecified; Z71.3 Dietary counseling and surveillance; K29.70 Gastritis, unspecified, without bleeding; Z20.822 Contact with and (suspected) exposure to COVID-19
CPT/HCPCS: 36415; 83605; 83690; 83735; 84100; 85025; 93005; A4663; G0378; J1170; J1650; J2270; J2405; J2543; J7040; Q9967

== ENCOUNTER 2023-12-25 20:39 | Emergency (ER) | payer BC ==
[~2023-12-25] VITALS: Ht 165.1 cm; Wt 86.2 kg
[~2023-12-25 20:39] MED LIST changes: +ACET325T53 PO; -AMOX500T2 PO; +BISA-79 PO; -CLAR-45 PO; -HYDR-4209 PO; -ONDA4TAB5 PO; -OXYC-128 PO; -TINI500T18 PO
[2023-12-25] MEDS ORDERED: KETOROLAC TROMETHAMINE 30 MG INJ ONE (21:17)
[2023-12-25] MEDS ORDERED: AMOXICILLIN-CLAVUL 875-125MG TABLET ONE (21:17)
[2023-12-25] MEDS ORDERED: HYDROCODONE/APAP 5-325MG TABLET ONE (21:17)
[2023-12-25] MEDS: KETOROLAC TROMETHAMINE 30 MG INJ IM ONE (21:22)
[2023-12-25] MEDS: HYDROCODONE/APAP 5-325MG TABLET PO ONE (21:22)
[2023-12-25] MEDS: AMOXICILLIN-CLAVUL 875-125MG TABLET PO ONE (21:22)
[2023-12-25] MEDS ORDERED: AMOX-430 PO (21:26)
[2023-12-25] MEDS ORDERED: HYDR-4209 PO (21:26)
[2023-12-25 21:37] VITALS: BP 140/89; TEMP 98.3; O2SAT 98
== END 2023-12-25 21:38 | disposition home or self-care (01) ==
LOC: ER 20:41
DX: K04.01 Reversible pulpitis (principal); R03.0 Elevated blood-pressure reading, without diagnosis of hypertension; K08.89 Other specified disorders of teeth and supporting structures; Z98.890 Other specified postprocedural states; Z79.899 Other long term (current) drug therapy; Z60.2 Problems related to living alone
CPT/HCPCS: A4606; A4663; J1885

== ENCOUNTER 2024-03-01 21:23 | Emergency (ER) | payer BC, OTHER ==
[~2024-03-01] VITALS: Ht 165.1 cm; Wt 88.9 kg
[~2024-03-01 21:23] MED LIST changes: +HYDR-4209 PO
[2024-03-01] MEDS ORDERED: HYDROMORPHONE 1 MG/1 ML DISP.SYRIN ONE (22:45)
[2024-03-01] MEDS ORDERED: ONDANSETRON 4 MG/2 ML VIAL ONE (22:46)
[2024-03-01] MEDS: HYDROMORPHONE 1 MG/1 ML DISP.SYRIN IV ONE (23:00)
[2024-03-01] MEDS: ONDANSETRON 4 MG/2 ML VIAL IV ONE (23:00)
[2024-03-01 23:04] LABS: BASOPHILS # (AUTO) 0.1 K/UL (0.0-0.2); BASOPHILS % (AUTO) 0.5 % (0.0-2.0); EOSINOPHILS # (AUTO) 0.1 K/uL (0.0-0.7); HEMOGLOBIN 14.2 g/dL (10.9-14.3); LYMPHOCYTES # (AUTO) 2.2 K/uL (0.8-4.8); MEAN CORPUSCULAR HEMOGLOBIN 28.3 uug (24.7-32.8); MEAN CORPUSCULAR HGB CONC 34 g/dL (32.3-35.6); MEAN CORPUSCULAR VOLUME 83.5 fL (75.5-95.3); MONOCYTES # (AUTO) 1.1 K/uL (0.1-1.30); MONOCYTES % (AUTO) 8.5 % (0.0-11.0); PLATELET COUNT (AUTO) 209 K/uL (179-408); RED BLOOD CELL COUNT(AUTO) 5.03 MIL/uL (3.63-4.92); RED CELL DISTRIBUTION WIDTH 14.2 % (12.3-17.7); WHITE BLOOD COUNT (AUTO) 13.5 K/uL (3.8-11.8)
[2024-03-01 23:15] LABS: *BILIRUBIN,URIN NEGATIVE (NEGATIVE); *BLOOD, URINE NEGATIVE (NEGATIVE); *CLARITY,URINE CLEAR (CLEAR); *COLOR,URINE YELLOW (YELLOW); *KETONES,URINE NEGATIVE (NEGATIVE); *PROTEIN,URINE NEGATIVE (NEGATIVE); *UROBILINOGEN,URINE 0.2 E.U./dl (NORMAL); LEUKOCYTE ESTERASE ,URINE NEGATIVE (NEGATIVE); NITRITE, URINE NEGATIVE (NEGATIVE); UGLUCOSE NEGATIVE (NEGATIVE)
[2024-03-01 23:16] LABS: CALCIUM 8.6 mg/dL (8.5-10.1); CREATININE 0.7 mg/dL (0.6-1.3); POTASSIUM 3.9 mmol/L (3.5-5.1)
[2024-03-01 23:31] LABS: ALBUMIN 3.6 g/dL (3.4-5.0); BILIRUBIN,DIRECT 0.2 mg/dL (0.0-0.2); BILIRUBIN,TOTAL 0.9 mg/dL (0.2-1.0); TOTAL PROTEIN, SERUM 7.6 g/dL (6.4-8.2)
[2024-03-01] MEDS ORDERED: IV NORMAL SALINE 250 ML IV ONE (23:49)
[2024-03-01] MEDS ORDERED: SWABABLE VALVE TRANSFER SET EA MC ONE (23:49)
[2024-03-02] MEDS ORDERED: AMOX-430 PO (01:22)
[2024-03-02] MEDS ORDERED: HYDR-3980 PO (01:22)
[2024-03-02] MEDS ORDERED: PIPERACILLIN/TAZOBACTAM/D5W 50 ML IV ONE (01:59)
[2024-03-02] MEDS: PIPERACILLIN SODIUM/TAZOBACTAM 3.375 G in IV DEXTROSE 5% 50 ML IV ONE (02:01)
[2024-03-02 02:36] VITALS: BP 110/74; TEMP 209.7; O2SAT 100
== END 2024-03-02 02:38 | disposition home or self-care (01) ==
LOC: ER 21:25
DX: K57.92 Diverticulitis of intestine, part unspecified, without perforation or abscess without bleeding (principal); R10.2 Pelvic and perineal pain; Z79.899 Other long term (current) drug therapy
CPT/HCPCS: 99285; 74177; 96375; 80076; 80048; 81003; 83690; 85025; 84702; 36415; 96365; J2405; J1170; J2543; A4606; A4663

== ENCOUNTER 2024-07-17 06:24 | Day surgery (SDC) | payer BC, OTHER ==
[~2024-07-17 06:24] MED LIST changes: +HYDR-3980 PO
[2024-07-17] MEDS ORDERED: PROPOFOL 200 MG/20 ML BOTTLE ONE (08:00)
[2024-07-17 10:07] VITALS: TEMP 97.4
== END 2024-07-17 10:25 | disposition home or self-care (01) ==
LOC: DS 06:24
PROVIDERS: ATTEND Surgery
DX: K57.92 Diverticulitis of intestine, part unspecified, without perforation or abscess without bleeding (principal); K64.8 Other hemorrhoids; K63.5 Polyp of colon; K21.9 Gastro-esophageal reflux disease without esophagitis; M19.90 Unspecified osteoarthritis, unspecified site; Z79.899 Other long term (current) drug therapy; Z98.890 Other specified postprocedural states
CPT/HCPCS: A4663; J3490; J7120

== ENCOUNTER 2024-10-10 07:45 | Day surgery (SDC) | payer BC, OTHER ==
[2024-10-10] MEDS ORDERED: PROPOFOL 200 MG/20 ML BOTTLE ONE (11:30)
[2024-10-10 11:50] VITALS: TEMP 96.4
== END 2024-10-10 12:00 | disposition home or self-care (01) ==
LOC: DS 07:45
PROVIDERS: ATTEND Surgery
DX: R10.13 Epigastric pain (principal); K29.80 Duodenitis without bleeding; K44.9 Diaphragmatic hernia without obstruction or gangrene; K21.00 Gastro-esophageal reflux disease with esophagitis, without bleeding; M19.90 Unspecified osteoarthritis, unspecified site; G43.909 Migraine, unspecified, not intractable, without status migrainosus; Z79.899 Other long term (current) drug therapy; Z98.890 Other specified postprocedural states
CPT/HCPCS: 43239; J3490; A4663